=== PATIENT | female | born 1970 | race Hispanic/Latino ===

== ENCOUNTER 2016-07-18 08:56 | Outpatient (CLI) | payer OTHER ==
[2016-07-18 10:18] LABS: ALT (SGPT) 34 U/L (0-55); AST (SGOT) 18 U/L (5-34); Alkaline Phosphatase 63 U/L (40-150); Anion Gap 12 mmol/L (10-20); BUN (Urea Nitrogen) 5 mg/dL (7.0-18.7); Bilirubin, Total 0.6 mg/dL (0.2-1.2); Calc. Creatinine Clearance 0 mL/min (70-130); Calcium 9.3 mg/dL (7.8-10.44); Carbon Dioxide 25 mmol/L (22-29); Cardiac Risk 3.6 (Less than 4.5); Chloride 110 mmol/L (98-107); Cholesterol 149 mg/dL (< 200 Desired); Estimated GFR-MDRD Greater than 90; Globulin 2.1 g/dL (2.4-3.5); Glucose 88 mg/dL (70-105); HDL Cholesterol 41 mg/dL (>60 Neg Risk); LDL Cholesterol, Calculated 95 mg/dL; Potassium 4.3 mmol/L (3.5-5.1); Protein, Total 6.1 g/dL (6.0-8.3); Sodium 143 mmol/L (136-145); Triglycerides 65 mg/dL (Less than 150)
[2016-07-18 10:24] LABS: #Basophils 0.1 thou/uL (0.0-0.2); #Eosinphils 0.1 thou/uL (0.0-0.7); #Lymphocytes 2.7 thou/uL (1.20-3.40); #Monocytes 0.6 thou/uL (0.11-0.59); #Neutrophils 7.8 thou/uL (1.40-6.50); %Basophils 0.7 % (0.0-1.0); %Lymphocytes 23.8 % (21.0-51.0); %Neutrophils 69.5 % (42.0-75.0); Hemoglobin 14.6 g/dL (12.0-16.0); Mean Corpuscular HGB CONC 32.8 g/dL (32.0-36.0); Mean Corpuscular Hemoglobin 30.5 pg (27.0-31.0); Mean Platelet Volume 7.8 fL (7.4-10.4); Platelet Count 295 thou/uL (130-400); RBC Distribution Width 12.1 % (11.5-14.5); Red Blood Cell (RBC) Count 4.77 mill/uL (4.20-5.40); White Blood Cell (WBC) Count 11.2 thou/uL (4.8-10.8)
[2016-07-18 10:39] LABS: Free T4 (Free Thyroxine) 1.12 ng/dL (0.70-1.48); Thyroid Stimulating Hormone 0.0046 uIU/mL (0.35-4.94)
== END 2016-07-18 08:57 | disposition home or self-care (01) ==
LOC: HPCALD 08:56
PROVIDERS: ATTEND Family Medicine
DX: Z13.6 Encounter for screening for cardiovascular disorders (principal); E03.9 Hypothyroidism, unspecified; R53.83 Other fatigue
CPT/HCPCS: 36415; 80053; 80061; 84439; 84443; 85025

== ENCOUNTER 2016-10-02 15:43 | Outpatient (CLI) | payer OTHER | END 2016-10-02 15:44 | disposition home or self-care (01) | LOC: HPCALD 15:43 | PROVIDERS: ATTEND Family Medicine | DX: N39.0 Urinary tract infection, site not specified (principal) | CPT/HCPCS: 87086 ==

== ENCOUNTER 2016-10-12 15:14 | Outpatient (CLI) | payer OTHER ==
[2016-10-12 15:42] LABS: PTT 27.1 SEC (22.9-36.1); Prothrombin Time 13.6 SEC (12.0-14.7)
[2016-10-14 07:25] LABS: Antinuclear AB Negative (Negative)
== END 2016-10-12 15:15 | disposition home or self-care (01) ==
LOC: HPCALD 15:14
PROVIDERS: ATTEND Family Medicine
DX: R23.8 Other skin changes (principal)
CPT/HCPCS: 36415; 85610; 85730; 86038

== ENCOUNTER 2017-08-28 10:03 | Outpatient (CLI) | payer OTHER ==
[~2017-08-28 10:03] MED LIST: Iopamidol 370 76% 100 ML VIAL ONE
[2017-08-28 10:38] LABS: Calc. Creatinine Clearance 0 mL/min (70-130); Estimated GFR-MDRD Greater than 90
--- NOTE | 2017-08-28 16:12 | CT ---
CT ABDOMEN AND PELVIS WITH CONTRAST 08/28/[address] of the abdomen and pelvis was done using oral and IV contrast. The scan was done for evalua tion of right lower quadrant pain. Axial slices were acquired, then coronal and sagittal reconstructi ons were done. The lung bases are clear except for some minor dependent atelectasis in the right lower lobe. On the top most slice, there was a 3 mm rounded density in the lingula that may actually be the end of the v essel, but I would need more slices to be sure. The odds of it being significant are quite low. The liver is normal in size. There is a 2.2 cm peripherally enhancing mass in the inferior right lobe that is almost certainly a hemangioma given its enhancement pattern. The remainder of the liver appe ars normal. The spleen, pancreas, adrenal glands, and kidneys appear normal. There has been a prior c holecystectomy. The aorta is normal in caliber and mesenteric vessels fill appropriately. There is no distention of bowel to suggest obstruction. There is an abundant amount of fecal material in the colon. The appendix appears normal. There is no free air or free fluid. The small bowel was u nremarkable. CT of the pelvis shows a 2.1 x 1.3 cm ring enhancing cystic lesion of the right adnexa. It is presuma dixie an ovarian cyst. An elective ultrasound might be helpful. No free fluid was seen. there are no in flammatory changes in the pelvis. IMPRESSION: 1. 2.2 cm peripherally enhancing mass in the lower right lobe of the liver, almost certainly a h emangioma. 2. Constipation. 3. Presumed right ovarian cyst. Elective followup ultrasound recommended. Code T POS: HOME
== END 2017-08-28 10:04 | disposition home or self-care (01) ==
LOC: BURCT 10:03
PROVIDERS: ATTEND Family Medicine
DX: Z01.818 Encounter for other preprocedural examination (principal); R10.31 Right lower quadrant pain; K59.00 Constipation, unspecified; R16.0 Hepatomegaly, not elsewhere classified
CPT/HCPCS: 36415; 74177; 82565; A4216

== ENCOUNTER 2018-05-02 13:25 | Emergency (ER) | payer OTHER ==
[~2018-05-02 13:25] MED LIST changes: -Iopamidol 370 76% 100 ML VIAL ONE; +Iopamidol 370 76% 125 ML VIAL FS ONE
[2018-05-02 14:20] LABS: Leukocyte Negative (Negative); Nitrite Negative (Negative); Specific Gravity, Urine 1.002 (1.002-1.036); pH, Urine 5.5 (5.0-9.0)
[2018-05-02 14:21] LABS: Bilirubin Negative (Negative); Blood, Urine Trace (Negative); Clarity Clear (Clear); Glucose, Urine (Dipstick) Negative (Negative); Protein, Urine (Dipstick) Negative (Neg-Trace); RBC/HPF 0-3 HPF (0-3); Urobilinogen 0.2 mg/dL (0.2-1.0)
[2018-05-02 14:22] LABS: Bacteria/HPF None Seen HPF (None Seen); Crystals/HPF None Seen HPF (Negative); Hyaline Casts/LPF NONE SEEN LPF (0-3 Hyaline); Other Casts/LPF None Seen LPF (0-3 Hyaline); Oval Fat Bodies/HPF None Seen HPF (None Seen); Renal Epithelial None Seen HPF (0-3); Sperm/HPF None Seen HPF (None Seen); Squamous Epithelial None Seen HPF (0-3); Transitional Epithelial NONE SEEN HPF (0-3); Trichomonas/HPF None Seen HPF (None Seen); WBC/HPF None Seen HPF (0-3); Yeast-All Forms None Seen HPF (None Seen)
[2018-05-02 14:28] LABS: ALT (SGPT) 16 U/L (8-55); AST (SGOT) 14 U/L (5-34); Albumin 4.5 g/dL (3.5-5.0); Alkaline Phosphatase 49 U/L (40-150); Anion Gap 13 mmol/L (10-20); BUN (Urea Nitrogen) 8 mg/dL (7.0-18.7); Bilirubin, Total 0.3 mg/dL (0.2-1.2); Calc. Creatinine Clearance 0 mL/min (70-130); Calcium 9.7 mg/dL (7.8-10.44); Carbon Dioxide 23 mmol/L (22-29); Chloride 108 mmol/L (98-107); Estimated GFR-MDRD 80; Globulin 2.8 g/dL (2.4-3.5); Glucose 104 mg/dL (70-105); Lipase 8 U/L (8-78); Potassium 3.3 mmol/L (3.5-5.1); Protein, Total 7.3 g/dL (6.0-8.3); Sodium 141 mmol/L (136-145)
[2018-05-02 14:33] LABS: Hemoglobin 15.1 g/dL (12.0-16.0); Lymphocytes 8 % (21-51); MDiff Complete? YES; Mean Corpuscular HGB CONC 34.1 g/dL (32.0-36.0); Mean Corpuscular Hemoglobin 30.9 pg (27.0-31.0); Mean Corpuscular Volume 90.6 fL (78.0-98.0); Mean Platelet Volume 7.8 fL (7.4-10.4); Monocytes 3 % (0-10); Neutrophil 89 % (42-75); Platelet Count 323 thou/uL (130-400); Red Blood Cell (RBC) Count 4.89 mill/uL (4.20-5.40); White Blood Cell (WBC) Count 23.4 thou/uL (4.8-10.8)
[2018-05-02] MEDS ORDERED: Lidocaine 4% Cream 5 GM TUBE w/ Tegaderm ONE (14:50)
[2018-05-02] MEDS ORDERED: Ketorolac Tromethamine 30 MG/ML VIAL ONE (14:50)
[2018-05-02] MEDS ORDERED: Piperacillin/Tazobactam 3.375 GM VIAL ONE (15:08)
[2018-05-02] MEDS ORDERED: Sodium Chloride 0.9% 100 ML ONE (15:08)
[2018-05-02] MEDS ORDERED: Fentanyl 100 MCG/2 ML VIAL ONE (15:44)
--- NOTE | 2018-05-02 15:50 | CT ---
CT ABDOMEN AND PELVIS WITH CONTRAST: 05/02/2018 HISTORY/TECHNIQUE: A spiral CT of the abdomen and pelvis was performed for evaluation of pain. Axial slices were acquir ed, followed by coronal and sagittal reconstructions. COMPARISON: 08/28/2017 FINDINGS: The lung bases are clear. The liver, spleen, pancreas, adrenal glands, kidneys, and aorta show no ac shawna findings. As before, there was a 2.1 cm, rim-enhancing lesion in the right lobe of the liver. P utting the two studies together, its characteristics highly suggest a benign hemangioma. As before, there is a large amount of fecal material in the colon, though no gross obstruction. Some of the small bowel loops are fluid-filled but not significantly dilated. The poole are not exceptio gaby thick. No free air is seen. CT of the pelvis shows a 2 cm, ring enhancing cyst in the left adnexa region. One was seen on the pr ior scan on the right. No such finding is seen on that side today. There is a small to medium amoun t of free fluid seen in the cul-de-sac on the right side. No inflammatory changes are seen around reéne wel, such as diverticulitis. IMPRESSION: 1. Constipation. 2. A 2 cm, ring enhancing left ovarian cyst, similar to the finding seen in the right ovary on the l ast scan. 3. No evidence for diverticulitis. 4. Small to medium amount of free fluid in the cul-de-sac, right side. POS: HOME
== END 2018-05-02 16:06 | disposition home or self-care (01) ==
LOC: BURERS 13:25
DX: K52.9 Noninfective gastroenteritis and colitis, unspecified (principal); E03.9 Hypothyroidism, unspecified; F41.9 Anxiety disorder, unspecified; F17.210 Nicotine dependence, cigarettes, uncomplicated; Z79.899 Other long term (current) drug therapy
CPT/HCPCS: 74177; 80053; 81003; 81015; 82274; 83690; 84484; 85025; 96361; 96365; 96375; J1885; J2543; J3010; J7050

== ENCOUNTER 2021-10-16 15:40 | Emergency (ER) | payer BC ==
[2021-10-16 16:29] LABS: Bilirubin Negative (Negative); Blood, Urine Moderate (Negative); Clarity Clear (Clear); Glucose, Urine (Dipstick) Negative (Negative); Ketone, Urine Negative (Negative); Leukocyte Negative (Negative); Nitrite Negative (Negative); Protein, Urine (Dipstick) Negative (Neg-Trace); Specific Gravity, Urine 1.025 (1.005-1.030); Urobilinogen 0.2 mg/dL (Less than 2); pH, Urine 5.5 (5.0-9.0)
[2021-10-16 16:31] LABS: #Basophils 0.2 thou/uL (0.0-0.2); #Eosinphils 0.2 thou/uL (0.0-0.7); #Lymphocytes 4.6 thou/uL (1.20-3.40); #Monocytes 0.7 thou/uL (0.11-0.59); #Neutrophils 9.1 thou/uL (1.40-6.50); %Basophils 1.3 % (0.0-1.0); %Eosinophils 1.2 % (0.0-10.0); %Lymphocytes 30.8 % (21.0-51.0); %Neutrophils 61.7 % (42.0-75.0); Hemoglobin 14.2 g/dL (12.0-16.0); Mean Corpuscular HGB CONC 32.5 g/dL (32.0-36.0); Mean Corpuscular Hemoglobin 30.4 pg (27.0-31.0); Mean Corpuscular Volume 93.5 fL (78.0-98.0); Mean Platelet Volume 7.8 fL (7.4-10.4); Platelet Count 278 thou/uL (130-400); RBC Distribution Width 13.6 % (11.5-14.5); Red Blood Cell (RBC) Count 4.66 mill/uL (4.20-5.40); White Blood Cell (WBC) Count 14.8 thou/uL (4.8-10.8)
[2021-10-16 16:35] LABS: Bacteria/HPF None Seen HPF (None Seen); RBC/HPF 0-3 HPF (0-3); Squamous Epithelial 0-3 HPF (0-3); WBC/HPF None Seen HPF (0-3)
[2021-10-16 16:46] LABS: ALT (SGPT) 35 U/L (8-55); AST (SGOT) 20 U/L (5-34); Albumin 4.3 g/dL (3.5-5.0); Alkaline Phosphatase 76 U/L (40-110); Anion Gap 14 mmol/L (10-20); BUN (Urea Nitrogen) 17 mg/dL (9.8-20.1); Bilirubin, Total 0.6 mg/dL (0.2-1.2); Calc. Creatinine Clearance 0 mL/min (70-130); Calcium 8.8 mg/dL (7.8-10.44); Carbon Dioxide 23 mmol/L (22-29); Chloride 106 mmol/L (98-107); Globulin 2.5 g/dL (2.4-3.5); Glucose 91 mg/dL (70-105); Potassium 3.8 mmol/L (3.5-5.1); Protein, Total 6.8 g/dL (6.0-8.3); Sodium 139 mmol/L (136-145)
== END 2021-10-16 17:13 | disposition home or self-care (01) ==
LOC: BURERS 15:40
DX: I89.0 Lymphedema, not elsewhere classified (principal); E03.9 Hypothyroidism, unspecified; F17.210 Nicotine dependence, cigarettes, uncomplicated; Z79.899 Other long term (current) drug therapy
CPT/HCPCS: 36415; 71046; 80053; 81003; 81015; 83880; 84484; 85025; 93005; 94760

== ENCOUNTER 2022-11-03 12:09 | Emergency (ER) | payer BC ==
[2022-11-03 12:31] LABS: Bilirubin Negative (Negative); Blood, Urine Large (Negative); Glucose, Urine (Dipstick) Negative (Negative); Ketone, Urine Trace mg/dL (Negative); Leukocyte Large (Negative); Nitrite Negative (Negative); Protein, Urine (Dipstick) 100 mg/dL (Neg-Trace); Specific Gravity, Urine 1.025 (1.005-1.030); Urobilinogen 0.2 mg/dL (Less than 2); pH, Urine 5.5 (5.0-9.0)
[2022-11-03 12:41] LABS: Clarity Cloudy (Clear)
[2022-11-03 12:42] LABS: Bacteria/HPF 2+ HPF (None Seen); CAUTI Indications for Culture Acute Hematuria; RBC/HPF Greater than 50 HPF (0-3); Squamous Epithelial 0-3 HPF (0-3)
[2022-11-03 12:49] LABS: Urine Culture Reflex Yes Yes
[2022-11-03] MEDS ORDERED: Cephalexin 250 MG CAP ONE ×2 (12:58)
== END 2022-11-03 13:23 | disposition home or self-care (01) ==
LOC: BURERS 12:09
DX: N39.0 Urinary tract infection, site not specified (principal); E03.9 Hypothyroidism, unspecified; F17.210 Nicotine dependence, cigarettes, uncomplicated
CPT/HCPCS: 81001; 87077; 87086; 87186; 99283

== ENCOUNTER 2023-02-03 09:09 | Emergency (ER) | payer BC ==
[2023-02-03] MEDS ORDERED: Ketorolac Tromethamine 30 MG/ML VIAL ONE (09:40)
[2023-02-03 09:48] LABS: #Basophils 0.1 thou/uL (0.0-0.2); #Eosinphils 0.1 thou/uL (0.0-0.7); #Lymphocytes 3.1 thou/uL (1.20-3.40); #Monocytes 0.4 thou/uL (0.11-0.59); #Neutrophils 4.5 thou/uL (1.40-6.50); %Basophils 1.4 % (0.0-1.0); %Eosinophils 0.7 % (0.0-10.0); %Lymphocytes 37.8 % (21.0-51.0); %Monocytes 4.7 % (0.0-10.0); %Neutrophils 55.4 % (42.0-75.0); Hematocrit 48.6 % (36.0-47.0); Hemoglobin 16.3 g/dL (12.0-16.0); Mean Corpuscular HGB CONC 33.5 g/dL (32.0-36.0); Mean Corpuscular Hemoglobin 29.5 pg (27.0-31.0); Mean Corpuscular Volume 88.2 fl (78.0-98.0); Mean Platelet Volume 9.3 fL (7.4-10.4); Platelet Count 320 10x3/uL (130-400); RBC Distribution Width 11.8 % (11.5-14.5); Red Blood Cell (RBC) Count 5.51 mill/uL (4.20-5.40); White Blood Cell (WBC) Count 8.1 10x3/uL (4.8-10.8)
[2023-02-03 09:49] LABS: Bilirubin Negative (Negative); Blood, Urine Moderate (Negative); Clarity Cloudy (Clear); Glucose, Urine (Dipstick) Negative (Negative); Ketone, Urine Negative (Negative); Leukocyte Large (Negative); Nitrite Positive (Negative); Protein, Urine (Dipstick) 30 mg/dL (Neg-Trace)
[2023-02-03 09:53] LABS: Bacteria/HPF 4+ HPF (None Seen); CAUTI Indications for Culture Dysuria,urgency,freq; WBC/HPF Greater than 50 HPF (0-3)
[2023-02-03 09:54] LABS: Urine Culture Reflex Yes Yes
[2023-02-03 09:59] LABS: Acetaminophen Less than 10 mcg/mL (10.0-30.0); Alcohol Less than 10.0 mg/dL (Less than 10); Salicylate Less than 8.0 mg/dL (15.0-30.0)
[2023-02-03 10:02] LABS: ALT (SGPT) 16 U/L (8-55); AST (SGOT) 15 U/L (5-34); Albumin 4.8 g/dL (3.5-5.0); Alkaline Phosphatase 95 U/L (40-110); Anion Gap 16 mmol/L (10-20); BUN (Urea Nitrogen) 10 mg/dL (9.8-20.1); Bilirubin, Total 0.7 mg/dL (0.2-1.2); Calc. Creatinine Clearance 0 mL/min (70-130); Calcium 10.4 mg/dL (7.8-10.44); Carbon Dioxide 20 mmol/L (22-29); Chloride 106 mmol/L (98-107); Estimated GFR 80; Glucose 103 mg/dL (70-105); Protein, Total 7.8 g/dL (6.0-8.3); Sodium 138 mmol/L (136-145)
[2023-02-03] MEDS ORDERED: Ciprofloxacin 500 MG TAB ONE (10:25)
== END 2023-02-03 10:43 | disposition home or self-care (01) ==
LOC: BURERS 09:09
DX: N30.00 Acute cystitis without hematuria (principal); F17.210 Nicotine dependence, cigarettes, uncomplicated
CPT/HCPCS: 80053; 80307; 81001; 83605; 85025; 87077; 87086; 87186; 96361; 96374; J1885